=== PATIENT | male | born 1975 | race Two or more races ===

== ENCOUNTER 2019-09-09 13:17 | Emergency (ER) | payer SELFPAY ==
[~2019-09-09] VITALS: Ht 170.2 cm; Wt 73.9 kg
[2019-09-09 13:34] VITALS: BP 127/95
--- NOTE | 2019-09-09 13:47 | NUR ---
ERP TO THE BS
[2019-09-09] MEDS ORDERED: HYDROcodone/APAP 5/325 TABLET ONE (13:53)
[2019-09-09] MEDS ORDERED: HYDROcodone/APAP 5/325 TABLET PO ONE (14:00)
== END 2019-09-09 15:11 | disposition home or self-care (01) ==
LOC: ED 15:03
DX: B34.9 Viral infection, unspecified (principal); M25.511 Pain in right shoulder; Z88.1 Allergy status to other antibiotic agents
CPT/HCPCS: 99283